=== PATIENT | female | born 1975 | race Caucasian/White ===

== ENCOUNTER 2017-01-29 00:16 | Emergency (ER) | payer BC ==
[2017-01-29 00:37] VITALS: RESP 18
--- NOTE | 2017-01-29 01:08 | ED ---
Chest Pain HPI - General Chief Complaint: Chest Pain Stated Complaint: chest pain Time Seen by Provider: 01/29/17 00:33 Source: patient Mode of arrival: ambulatory Limitations: no limitations - History of Present Illness Initial Comments: This patient is a 41-year-old woman who presents to be evaluated for epigastric pain that radiates to the right scapular area. She states that it started hour or 2 ago while she was lying in bed. She had gone to bed 20 minutes prior to the onset. The patient describes it as sharp and also aching pain at at home was severe but here it is now moderate. The pain is constant. She has not noted any worsening factors. The pain did get to see better after she had vomited. She states that she did have a similar episode to this last week though not as severe. Patient denies any symptoms accompanying this pain other than the nausea and vomiting which is now better. MD Complaint: chest pain Onset/Timin -: hour(s) Onset: during rest Pain Location: substernal Pain Radiation: back Severity: moderate Quality: aching, sharp Consistency: constant Improves With: other (Vomiting) Worsens With: nothing Anginal Symptoms: nausea, vomiting Treatments Prior to Arrival: none - Related Data Previous Rx's Medication Instructions Recorded HYDROcodone/APAP 5-325MG [[place] 1 - 2 tab PO Q4H PRN #15 tab 02/21/16 5-325] Ibuprofen [Motrin] 600 mg PO Q6HR PRN #30 tab 02/21/16 Famotidine [Pepcid] 20 mg PO DAILY #14 tablet 01/29/17 Allergies Allergy/AdvReac Type Severity Reaction Status Date / Time No Known Allergies Allergy Verified 01/29/17 00:23 Review of Systems ROS Statement: Those systems with pertinent positive or pertinent negative responses have been documented in the HPI. ROS Other: All systems not noted in ROS Statement are negative. Constitutional: Denies: fever, chills, weakness Respiratory: Denies: cough, dyspnea, wheezes Cardiovascular: Denies: chest pain, palpitations, edema, syncope Gastrointestinal: Reports: as per HPI, abdominal pain, nausea, vomiting. Denies : diarrhea, constipation, hematemesis, melena, hematochezia Genitourinary: Denies: dysuria, hematuria Musculoskeletal: Reports: as per HPI, back pain Skin: Denies: rash, lesions Neurological: Denies: headache, weakness, numbness EKG Findings - EKG Results: EKG: interpreted by STAR KEMP, sinus rhythm (Rate 77 bpm), normal axis, normal QRS, normal ST/T, no acute changes - TN, Pacemaker, Normal: Normal tracing: normal tracing Past Medical History Additional Past Medical History / Comment(s): kidney stones History of Any Multi-Drug Resistant Organisms: None Reported Past Surgical History: No Surgical Hx Reported Past Psychological History: No Psychological Hx Reported Smoking Status: Never smoker Past Alcohol Use History: None Reported Past Drug Use History: None Reported General Exam Limitations: no limitations General appearance: alert, in no apparent distress Head exam: Present: atraumatic, normocephalic, normal inspection Eye exam: Present: normal appearance. Absent: scleral icterus, conjunctival injection ENT exam: Present: mucous membranes dry Neck exam: Present: normal inspection Respiratory exam: Present: normal lung sounds bilaterally. Absent: respiratory distress, wheezes, rales, rhonchi, stridor Cardiovascular Exam: Present: regular rate, normal rhythm, normal heart sounds. Absent: systolic murmur, diastolic murmur, rubs, gallop GI/Abdominal exam: Present: soft, tenderness (There is mild epigastric and right upper quadrant tenderness without rebound or guarding). Absent: distended , guarding, rebound, rigid, organomegaly, mass, bruit, pulsatile mass, hernia Extremities exam: Present: normal inspection, normal capillary refill. Absent: pedal edema, calf tenderness Back exam: Present: normal inspection. Absent: CVA tenderness (R), CVA tenderness (L) Neurological exam: Present: alert Skin exam: Present: warm, dry, intact, normal color. 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
--- NOTE | 2017-01-29 01:10 | XR ---
EXAM: XR Chest, 1 View. CLINICAL HISTORY: Reason: abdominal pain TECHNIQUE: Frontal view of the chest. COMPARISON: No relevant prior studies available. FINDINGS: Lungs: Unremarkable. No consolidation. Pleural space: Unremarkable. No pneumothorax. Heart: Unremarkable. No cardiomegaly. Mediastinum: Unremarkable. Bones/joints: Unremarkable. Other: Images labeled as portable AP upright view. No free air noted under the diaphragms. IMPRESSION: No evidence of acute cardiopulmonary disease.
[2017-01-29 01:21] LABS: Basophils % (A) 1 %; CH 29.8; CHCM 34.3; Eosinophils # (A) 0.1 k/uL (0-0.7); Eosinophils % (A) 2 %; HCT 39.3 % (34.0-46.0); HDW 2.67; HGB 13.1 gm/dL (11.4-16.0); Luc # (Auto) 0.24; Luc % (Auto) 4; Lymphocytes # (A) 2.2 k/uL (1.0-4.8); Lymphocytes % (A) 41 %; MCH 29.2 pg (25.0-35.0); MCHC 33.4 g/dL (31.0-37.0); MCV 87.4 fL (80.0-100.0); Mean Platelet Volume 6.8; Monocytes # (A) 0.4 k/uL (0-1.0); Monocytes % (A) 6 %; Neutrophils # (A) 2.5 k/uL (1.3-7.7); Neutrophils % (A) 46 %; RDW 13.5 % (11.5-15.5); WBC 5.4 k/uL (3.8-10.6); WBC (Perox) 5.63
[2017-01-29 01:28] LABS: ALT 66 U/L (9-52); AST 106 U/L (14-36); Alkaline Phosphatase 60 U/L (38-126); Amylase 60 U/L (30-110); Anion Gap 12 mmol/L; Blood Urea Nitrogen 16 mg/dL (7-17); Calcium 9.6 mg/dL (8.4-10.2); Carbon Dioxide 22 mmol/L (22-30); Chloride 110 mmol/L (98-107); Glucose 86 mg/dL (74-99); Non-African American GFR(MDRD) >60 (>60 ml/min/1.73 sqM); Potassium 4.3 mmol/L (3.5-5.1); Sodium 144 mmol/L (137-145); Total Bilirubin 0.6 mg/dL (0.2-1.3); Total Protein 7.2 g/dL (6.3-8.2)
[2017-01-29 02:38] LABS: Appearance,Urine Clear (Clear); Bacteria,Urine Rare /hpf; Bilirubin,Urine Negative (Negative); Glucose,Urine (UA) Negative (Negative); Ketones,Urine Negative (Negative); Leukocyte Esterase,Urine Moderate (Negative); Mucus,Urine Many /hpf; Nitrite,Urine Negative (Negative); Particle Count 6406; Protein,Urine Trace (Negative); RBC,Urine 2 /hpf (0-5); Specific Gravity,Urine 1.016 (1.001-1.035); Squamous Epithelial Cell,Urine 1 /hpf (0-4); UA Billing (MACRO vs. MICRO) MICRO; Urobilinogen,Urine <2.0 mg/dL (<2.0); WBC,Urine 22 /hpf (0-5)
[2017-01-29 02:53] VITALS: BP 116/71; PULSE 71; TEMP 97.8
== END 2017-01-29 02:58 | disposition home or self-care (01) ==
LOC: EC 00:16
DX: K80.50 Calculus of bile duct without cholangitis or cholecystitis without obstruction (principal); R07.2 Precordial pain; Z87.442 Personal history of urinary calculi
CPT/HCPCS: 36415; 71010; 80053; 81001; 81025; 82150; 83690; 84484; 85025; 93005; 99285

== ENCOUNTER 2017-02-02 17:32 | Inpatient (IN) | payer BC ==
[2017-02-02] MEDS ORDERED: SODIUM CHLORIDE 0.9% 1,000 ML IV STA ×2 (18:18)
[2017-02-02] MEDS ORDERED: HYDROmorphone 1 MG/ML 1 ML SYRINGE IVP STA (18:18)
--- NOTE | 2017-02-02 18:32 | ED ---
General Adult HPI - General Chief complaint: Abdominal Pain Stated complaint: abd pain Time Seen by Provider: 02/02/17 17:57 Source: patient, family, RN notes reviewed, old records reviewed Mode of arrival: ambulatory Limitations: no limitations - History of Present Illness Initial comments: Chief complaint and history of present illness, this is a 41-year-old female who had an ultrasound done today and it shows cholelithiasis and possible acute cholecystitis. The patient was sent here for admission and further evaluation by general surgery. - Related Data Home Medications Medication Instructions Recorded Confirmed Medroxyprogesterone Acetate 150 mg IM Q84D 02/02/17 02/02/17 [Depo-Provera] Multivitamins, Thera [Multivitamin 1 tab PO DAILY 02/02/17 02/02/17 (formulary)] Allergies Allergy/AdvReac Type Severity Reaction Status Date / Time No Known Allergies Allergy Verified 02/02/17 18:13 Review of Systems ROS Statement: Those systems with pertinent positive or pertinent negative responses have been documented in the HPI. Review of systems. No complaint of headache or visual acuity changes, no chest pain or shortness of breath. Patient reports she has her pain the right upper quadrant goes toward the right shoulder area. Ultrasound done at [facility] today showed evidence of cholelithiasis and probable acute cholecystitis. Patient's reporting that she's had on-again off-again discomfort for several weeks. Past medical problems significant for kidney stones, denies any previous surgeries, nonsmoker nonalcohol user. Family history respiratory. ROS Other: All systems not noted in ROS Statement are negative. Past Medical History Additional Past Medical History / Comment(s): kidney stones History of Any Multi-Drug Resistant Organisms: None Reported Past Surgical History: No Surgical Hx Reported Past Psychological History: No Psychological Hx Reported Smoking Status: Never smoker Past Alcohol Use History: None Reported Past Drug Use History: None Reported General Exam - General Exam Comments Initial Comments: General: The patient is awake and alert, in no distress, and does not appear acutely ill. Blunting of right upper quadrant discomfort recurrent. Gallbladder study done today shows evidence of cholelithiasis and cholecystitis. Vital signs show temperature 97.5 pulse 79 respiratory rate 20 pulse ox R percent room air blood pressure 120/68 Eye: Pupils are equal, round and reactive to light, extra-ocular movements are intact ; there is normal conjunctiva bilaterally. No signs of icterus. Ears, nose, mouth and throat: There are moist mucous membranes and no oral lesions. Neck: The neck is supple, there is no tenderness . Cardiovascular: There is a regular rate and rhythm. No murmur, rub or gallop is appreciated. Respiratory: Lungs are clear to auscultation, respirations are non-labored, breath sounds are equal. No wheezes, stridor, rales, or rhonchi. Gastrointestinal: Tenderness with deep palpation to the right upper quadrant. Positive Silver sign. Back: There is no tenderness to palpation in the midline. There is no obvious deformity. No rashes noted. Vaginal pain that radiates to the right shoulder area Musculoskeletal: Normal ROM, no tenderness, There is no pedal edema. There is no calf tenderness or swelling. Sensation intact. Pulses equal bilaterally 2+. Neurological: No gross neuro deficits appreciated. Skin: Skin is warm and dry and no rashes or lesions are noted. Limitations: no limitations Course Vital Signs 02/02/17 02/02/17 17:43 18:38 Temperature 98.1 F 98.5 F Pulse Rate 73 67 Respiratory 20 18 Rate Blood Pressure 124/73 113/76 O2 Sat by Pulse 98 100 Oximetry Medical Decision Making - Medical Decision Making Medical decision making; the patient had an ultrasound done at [facility]. It was reviewed by one of our radiologist. His impression is the liver is unremarkable without biliary dilatation. There are small stones within the gallbladder. The gallbladder wall measures 3 mm. The distal common hepatic duct measures 1.6 mm there is sonographic Silver's sign. The right kidney is normal. The intrahepatic IVC is normal. His final impression is; cholelithiasis and possible acute cholecystitis. As read by Dr. Shaista Allen, on-call general surgeon was notified of the case. Patient will be kept nothing by mouth. Labs are pending. If it is significantly elevated bilirubin and GI consultation will be requested. At this time she requested Zosyn be started on admission. Labs show white count of 4.5 hemoglobin 13 hematocrit of 40, potassium 4.3 with a BUN of 15 creatinine 0.69 the GFR greater than 60. Glucose 79. Amylase lipase normal limits. Total bilirubin 0.8. - Lab Data Result diagrams: 02/02/17 18:36 02/02/17 18:36 Lab Results 02/02/17 02/02/17 Range/Units 18:36 18:36 WBC 4.5 (3.8-10.6) k/uL RBC 4.64 (3.80-5.40) m/uL Hgb 13.6 (11.4-16.0) gm/dL Hct 40.7 (34.0-46.0) % MCV 87.6 (80.0-100.0) fL MCH 29.2 (25.0-35.0) pg MCHC 33.4 (31.0-37.0) g/dL RDW 13.1 (11.5-15.5) % Plt Count 326 (150-450) k/uL Neutrophils % 52 % Lymphocytes % 38 % Monocytes % 5 % Eosinophils % 2 % Basophils % 1 % Neutrophils # 2.3 (1.3-7.7) k/uL Lymphocytes # 1.7 (1.0-4.8) k/uL Monocytes # 0.2 (0-1.0) k/uL Eosinophils # 0.1 (0-0.7) k/uL Basophils # 0.0 (0-0.2) k/uL Sodium 141 (137-145) mmol/L Potassium 4.3 (3.5-5.1) mmol/L Chloride 107 (98-107) mmol/L Carbon Dioxide 21 L (22-30) mmol/L Anion Gap 13 mmol/L BUN 15 (7-17) mg/dL Creatinine 0.69 (0.52-1.04) mg/dL Est GFR (MDRD) Af Amer >60 (>60 ml/min/1.73 sqM) Est GFR (MDRD) Non-Af >60 (>60 ml/min/1.73 sqM) Glucose 79 (74-99) mg/dL Calcium 9.6 (8.4-10.2) mg/dL Total Bilirubin 0.8 (0.2-1.3) mg/dL AST 31 (14-36) U/L ALT 38 (9-52) U/L Alkaline Phosphatase 67 (38-126) U/L Total Protein 7.5 (6.3-8.2) g/dL Albumin 4.3 (3.5-5.0) g/dL Amylase 44 (30-110) U/L Lipase 76 (23-300) U/L Disposition Clinical Impression: Acute cholecystitis due to biliary calculus Disposition: ADMITTED IP TO THIS HOSP Condition: Fair
[2017-02-02 18:49] LABS: Basophils % (A) 1 %; CH 29.6; Eosinophils # (A) 0.1 k/uL (0-0.7); Eosinophils % (A) 2 %; HCT 40.7 % (34.0-46.0); HDW 2.64; HGB 13.6 gm/dL (11.4-16.0); Luc # (Auto) 0.13; Luc % (Auto) 3; Lymphocytes # (A) 1.7 k/uL (1.0-4.8); Lymphocytes % (A) 38 %; MCH 29.2 pg (25.0-35.0); MCHC 33.4 g/dL (31.0-37.0); MCV 87.6 fL (80.0-100.0); Mean Platelet Volume 6.6; Monocytes # (A) 0.2 k/uL (0-1.0); Monocytes % (A) 5 %; Neutrophils # (A) 2.3 k/uL (1.3-7.7); Neutrophils % (A) 52 %; RBC 4.64 m/uL (3.80-5.40); RDW 13.1 % (11.5-15.5); WBC 4.5 k/uL (3.8-10.6); WBC (Perox) 4.45
[2017-02-02 18:58] LABS: ALT 38 U/L (9-52); AST 31 U/L (14-36); Alkaline Phosphatase 67 U/L (38-126); Amylase 44 U/L (30-110); Anion Gap 13 mmol/L; Blood Urea Nitrogen 15 mg/dL (7-17); Calcium 9.6 mg/dL (8.4-10.2); Carbon Dioxide 21 mmol/L (22-30); Chloride 107 mmol/L (98-107); Glucose 79 mg/dL (74-99); Non-African American GFR(MDRD) >60 (>60 ml/min/1.73 sqM); Potassium 4.3 mmol/L (3.5-5.1); Sodium 141 mmol/L (137-145); Total Bilirubin 0.8 mg/dL (0.2-1.3); Total Protein 7.5 g/dL (6.3-8.2)
[2017-02-02] MEDS ORDERED: PIPERACILLIN-TAZOBACTAM 3.375 GM in DEXTROSE/WATER 1 50ML.BAG IVPB STA (19:26)
[2017-02-02] MEDS ORDERED: NALOXONE 0.4 MG/ML 1 ML VIAL IV PRN (19:27)
[2017-02-02] MEDS ORDERED: HYDROmorphone 1 MG/ML 1 ML SYRINGE IV PRN (19:27)
[2017-02-02] MEDS: SODIUM CHLORIDE 0.9% 1,000 ML IV SCH (19:47)
[2017-02-03] MEDS: ONDANSETRON 4 MG/2 ML VIAL IVP PRN ×2 (05:02→18:28)
[2017-02-03] MEDS: SODIUM CHLORIDE 0.9% 1,000 ML IV SCH ×3 (05:14→17:35)
[2017-02-03 05:26] LABS: Appearance,Urine Clear (Clear); Bilirubin,Urine Negative (Negative); Glucose,Urine (UA) Negative (Negative); Ketones,Urine 1+ (Negative); Leukocyte Esterase,Urine Large (Negative); Mucus,Urine Few /hpf; Nitrite,Urine Negative (Negative); Particle Count 6485; Protein,Urine Trace (Negative); RBC,Urine 3 /hpf (0-5); Specific Gravity,Urine 1.019 (1.001-1.035); Squamous Epithelial Cell,Urine 1 /hpf (0-4); UA Billing (MACRO vs. MICRO) MICRO; Urobilinogen,Urine <2.0 mg/dL (<2.0); WBC,Urine 36 /hpf (0-5)
[2017-02-03] MEDS: PIPERACILLIN-TAZOBACTAM 3.375 GM in DEXTROSE/WATER 1 50ML.BAG IVPB SCH ×3 (08:46→23:14)
[2017-02-03] MEDS ORDERED: HEPARIN SODIUM,PORCINE 5,000 UNIT/ML 1 ML VIAL SQ ONE (10:01)
--- NOTE | 2017-02-03 10:37 | P.GSHP ---
History of Present Illness H&P Date: 02/03/17 Chief Complaint: Right upper quadrant abdominal pain 41-year-old female presented on the day of admission to the emergency room to be evaluated for an abnormal ultrasound of the gallbladder that did show possible acute cholecystitis with cholelithiasis for persistent right abdominal pain onset for the past week. Patient has no other significant past medical history. Patient stated her symptoms and her first attack occurred January 24. Patient points to the right upper quadrant was to the reference point patient stated that she had pain there with a sensation of nausea did not feel like eating symptoms became more symptomatic did go to the emergency room last Tuesday to be evaluated. Patient to follow-up with her primary doctor who did order an ultrasound of gallbladder which the patient stated that she had on February 02 was told was abnormal and was advised to come into the emergency room subsequent has been admitted to the services of the attending. Patient is scheduled today for a lap cholecystectomy. Patient continues to report having persistent right upper quadrant abdominal discomfort patient states the ultrasound of the gallbladder was done at [facility] on the labs were reviewed white count 4.5 total bilirubin 0.8 potassium 4.3 hematocrit 40 with a hemoglobin of 13 There is no significant past surgical history Patient denies any chest pain dizziness lightheadedness shortness of breath any recent cough fever or chills - Review of Systems Comment: Essentially unremarkable except as mentioned in the present illness Past Medical History Additional Past Medical History / Comment(s): kidney stones History of Any Multi-Drug Resistant Organisms: None Reported Past Surgical History: No Surgical Hx Reported Past Anesthesia/Blood Transfusion Reactions: No Reported Reaction Past Psychological History: No Psychological Hx Reported Smoking Status: Never smoker Past Alcohol Use History: None Reported Past Drug Use History: None Reported - Past Family History Mother Family Medical History: Hypertension Father Family Medical History: Deep Vein Thrombosis (DVT), Hyperlipidemia, Hypertension Additional Family Medical History / Comment(s): DVT at age 73 Medications and Allergies Home Medications Medication Instructions Recorded Confirmed Type Medroxyprogesterone Acetate 150 mg IM Q84D 02/02/17 02/02/17 History [Depo-Provera] Multivitamins, Thera [Multivitamin 1 tab PO DAILY 02/02/17 02/02/17 History (formulary)] Allergies Allergy/AdvReac Type Severity Reaction Status Date / Time No Known Allergies Allergy Verified 02/02/17 18:13 Surgical - Exam Vital Signs Temp Pulse Resp BP Pulse Ox 98.1 F 73 20 124/73 98 02/02/17 17:43 02/02/17 17:43 02/02/17 17:43 02/02/17 17:43 02/02/17 17:43 GENERAL APPEARANCE: 41-year-old female patient is alert, oriented 3, in no acute distress. Pleasant cooperative VITAL SIGNS: Reviewed HEENT: Head is normocephalic and atraumatic. Pupils are equal and reactive. The nares are patent. Oropharynx is clear without lesions. NECK: Supple without lymphadenopathy. Traches midline. HEART: S1, S2. Regular rate and rhythm. No murmur noted denying chest pain LUNGS: No crackles or wheezes are heard. On room air essentially clear no conversational dyspnea noted no cough noted ABDOMEN: Soft, slight tenderness right quadrant nondistended with good bowel sounds. No peritoneal signs. No palpable organomegaly or masses. Reports a sensation of nausea no active emesis states no stooling no difficulty in urinating EXTREMITIES: Normal skin color and turgor. No cyanosis, rash, ulceration, clubbing or edema. Radial pedal pulses are 2/4 bilaterally. NEUROLOGICAL: No focal deficits. Strength and sensation are grossly intact. Results - Labs 02/02/17 18:36 02/02/17 18:36 Abnormal Lab Results - Last 24 Hours (Table) 02/03/17 Range/Units 05:00 Urine Protein Trace H (Negative) Urine Ketones 1+ H (Negative) Ur Leukocyte Esterase Large H (Negative) Urine WBC 36 H (0-5) /hpf Urine Mucus Few H (None) /hpf Assessment and Plan Plan: Impression Present on admission persistent right upper quadrant abdominal pain with an ultrasound of the gallbladder showing cholelithiasis with acute cholecystitis not ruled out Persistent intermittent episodes right upper quadrant pain likely due to cholelithiasis with acute cholecystitis not ruled out Plan Schedule today for a lap cholecystectomy Continue IV hydration Pain control DVT and GI prophylaxis Further recommendations pending IV Zosyn as ordered The above dictated assessment and findings were discussed with dr mendieta . Impression and the plan of care have been dictated as directed. Chhaya Contreras nurse practitioner acting as a scribe for dr mendieta
[2017-02-03] MEDS ORDERED: IV FLUID CONTINUATION 1,000 ML IV ONE (13:32)
[2017-02-03] MEDS ORDERED: DEXAMETHASONE SOD PHOSPHATE 10 MG/ML 1 ML VIAL IV ONE (13:34)
[2017-02-03] MEDS ORDERED: ONDANSETRON 4 MG/2 ML VIAL IVP ONE (13:36)
[2017-02-03] MEDS ORDERED: MIDAZOLAM 2 MG/2 ML VIAL IV ONE (13:40)
[2017-02-03] MEDS ORDERED: ROCURONIUM BROMIDE 10 MG/ML 10 ML VIAL IV ONE (14:44)
[2017-02-03] MEDS ORDERED: MIDAZOLAM 2 MG/2 ML VIAL ONE (14:44)
[2017-02-03] MEDS ORDERED: HYDROmorphone (PF) 1 MG/ML ONE (14:44)
[2017-02-03] MEDS ORDERED: LIDOCAINE 1% INJ 10MG/ML (20 ML MDV) ONE (14:44)
[2017-02-03] MEDS ORDERED: PROPOFOL 10 MG/ML 20 ML VIAL IV ONE (14:44)
[2017-02-03] MEDS ORDERED: fentaNYL (PF) 50 MCG/ML 2 ML AMP ONE (14:44)
[2017-02-03] MEDS ORDERED: SUCCINYLCHOLINE CHLORIDE 100 MG/5 ML SYR IV ONE (14:44)
[2017-02-03] MEDS ORDERED: BUPIVACAIN-EPI 0.25%-1:200,000 30 ML VIAL SQ ONE ×2 (15:15)
[2017-02-04] MEDS: ONDANSETRON 4 MG/2 ML VIAL IVP PRN (02:45)
[2017-02-04] MEDS: SODIUM CHLORIDE 0.9% 1,000 ML IV SCH ×2 (04:34→10:28)
[2017-02-04 07:41] VITALS: BP 125/64; PULSE 97; RESP 20; TEMP 98
--- NOTE | 2017-02-04 08:21 | P.OP ---
Date of Procedure: 02/03/17 Preoperative Diagnosis: Acute calculus cholecystitis Postoperative Diagnosis: Same Procedure(s) Performed: Laparoscopic Cholecystectomy Implants: NA Anesthesia: SYDNEEA, local Surgeon: Ilene Allen Estimated Blood Loss (ml): 5 Pathology: other Condition: stable Disposition: PACU Indications for Procedure: 41 years old female presented with acute right upper quadrant pain. Ultrasound showed gallstones. Informed consent obtained and patient elected to undergo laparoscopic cholecystectomy possible open. The risks, benefits and potential complications were explained patient elected to undergo the procedure Operative Findings: Acute cholecystitis Description of Procedure: The patient was brought to the operating room and placed in supine position with both arms out. General anesthesia with endotracheal intubation was performed as per anesthesia team. Chlorhexidine was used to prep the abdomen followed by application of sterile drapes. A timeout was performed to verify correct patient and correct procedure. Patient was confirmed to receive perioperative IV antibiotics , heparin 5000 units subcutaneous injection and bilateral SCDs were placed. A 5 mm skin incision was made below the left costal margin at the anterior axillary line. A Veress needle was inserted and pneumoperitoneum was established to a pressure of 15 mmHg. A 5 mm Optiview trocar was loaded on a 5 mm 30 laparoscope and the peritoneal cavity was entered under direct vision using the Optiview technique. Additional 5 mm trocar was placed in the supraumbilical location and two 5 mm trocars along the right subcostal margin. The left 5 mm trocar was upsized to 10mm. The patient was placed in reverse Trendelenburg with right side up. The fundus of the gallbladder was grasped with an atraumatic grasper and was retracted over the dome of the liver. The infundibulum was grasped with an atraumatic grasper and retracted towards the pelvis to expose the Calot's triangle. Lateral and medial peritoneal attachment of the gallbladder bladder was dissected. Circumferential dissection was carried out around the cystic artery and the cystic duct to obtain adequate length for clip application. All the surrounding fibrofatty tissue were removed. Critical view was obtained with cystic duct and cystic artery as the only two structures entering the gallbladder. Two clips were applied on the patient's side and one on the specimen side on the cystic duct first followed by the cystic artery. Endoshears were used to divide the cystic duct and the cystic artery. The gallbladder was taken off the liver bed using a L-hook. It was placed in an endocatch specimen bag and removed through the 10mm port. The gallbladder was passed off as a specimen. The abdominal cavity was inspected. The clips on the cystic duct and cystic artery stump were intact and no bleeding noted from the liver bed. All the trocar sites were examined and no evidence of bleeding. The 10mm port site was closed with two transfascial sutures of 0 Vicryl using a Wil Kirstin device. The pneumoperitoneum was evacuated and all the trocars were removed. Local anesthetic was infiltrated along the trocar sites and incisions were closed using 4-0 Monocryl followed by application of Dermabond skin glue. The sponge, instrument and needle count were correct x2. Patient was extubated and taken to post anesthesia care unit in stable condition.
[2017-02-04] MEDS ORDERED: ACETAMINOPHEN IV (For NPO) 1,000 MG in EMPTY BAG 1 BAG IVPB ONE (09:00)
[2017-02-04] MEDS: PIPERACILLIN-TAZOBACTAM 3.375 GM in DEXTROSE/WATER 1 50ML.BAG IVPB SCH (10:28)
--- NOTE | 2017-02-04 14:04 | P.DS ---
Providers Date of admission: 02/02/17 19:27 Expected date of discharge: 02/04/17 Attending physician: Ilene Mendieta Primary care physician: Rosie Conley [facility] Course: 1-year-old female presented on the day of admission to the emergency room to be evaluated for an abnormal ultrasound of the gallbladder that did show possible acute cholecystitis with cholelithiasis for persistent right abdominal pain onset for the past week. Patient has no other significant past medical history. Patient stated her symptoms and her first attack occurred January 24. Patient points to the right upper quadrant was to the reference point patient stated that she had pain there with a sensation of nausea did not feel like eating symptoms became more symptomatic did go to the emergency room last Tuesday to be evaluated. Patient to follow-up with her primary doctor who did order an ultrasound of gallbladder which the patient stated that she had on February 02 was told was abnormal and was advised to come into the emergency room subsequent has been admitted to the services of the attending. Patient is scheduled today for a lap cholecystectomy. Patient continues to report having persistent right upper quadrant abdominal discomfort patient states the ultrasound of the gallbladder was done at [facility] on the labs were reviewed white count 4.5 total bilirubin 0.8 potassium 4.3 hematocrit 40 with a hemoglobin of 13 There is no significant past surgical history Patient denies any chest pain dizziness lightheadedness shortness of breath any recent cough fever or chillspatient did undergo the procedure on February 03 Laparoscopic Cholecystectomy Anesthesia: ruslan WELCH patient was felt to be hemodynamically stable and appropriate proceed with a discharge to home on February 04 Impression discharge diagnosis Status post 02/03/2017 laparoscopic cholecystectomy Present on admission persistent right upper quadrant abdominal pain with an ultrasound of the gallbladder showing cholelithiasis with acute cholecystitis not ruled out Persistent intermittent episodes right upper quadrant pain likely due to cholelithiasis with acute cholecystitis not ruled out The above dictated assessment and findings were discussed with dr mendieta . Impression and the plan of care have been dictated as directed. Chhaya Contreras nurse practitioner acting as a scribe for dr mendieta Patient Condition at Discharge: Fair Plan - Discharge Summary New Discharge Prescriptions: Docusate [Colace] 100 mg PO BID #30 capsule Hydrocodone/Acetaminophen [[place] 5-325] 1 each PO Q6HR PRN #30 tab PRN Reason: Pain Discharge Medication List Medroxyprogesterone Acetate [Depo-Provera] 150 mg IM Q84D 02/02/17 [History] Multivitamins, Thera [Multivitamin (formulary)] 1 tab PO DAILY 02/02/17 [History ] Docusate [Colace] 100 mg PO BID #30 capsule 02/03/17 [Rx] Hydrocodone/Acetaminophen [[place] 5-325] 1 each PO Q6HR PRN #30 tab 02/03/17 [Rx] Follow up Appointment(s)/Referral(s): Ilene Mendieta MD [STAFF PHYSICIAN] - 02/08/17 10:40 am Rosie Conley MD [Primary Care Provider] - 02/07/17 (Office will call you with appointment time. ) Patient Instructions/Handouts: *Surgery [facility] - Laparoscopic Cholecystectomy Discharge Instructions, *Surgery [facility] - (Anesthesia) Discharge Instructions Outpatient Surgery Activity/Diet/Wound Care/Special Instructions: Ok to shower. No soaking bath. No heavy lifting>10 lbs for 6 weeks post surgery. Discharge Disposition: HOME SELF-CARE
== END 2017-02-04 14:38 | disposition home or self-care (01) | DRG 419 ==
LOC: EC 17:32 → 4MS4W 19:27
PROVIDERS: ADMIT Surgery; ATTEND Surgery
PROC: 0FT44ZZ Resection of Gallbladder, Percutaneous Endoscopic Approach (ICD-10-PCS; principal; 2017-02-03 14:45)
DX: K80.00 Calculus of gallbladder with acute cholecystitis without obstruction (principal); Z87.442 Personal history of urinary calculi; Z82.49 Family history of ischemic heart disease and other diseases of the circulatory system; Z79.3 Long term (current) use of hormonal contraceptives
CPT/HCPCS: 36415; 80053; 81001; 81025; 82150; 83690; 85025; 87086; 88304; 96361; 96374; 99285

== ENCOUNTER → 2017-06-30 | Outpatient (CLI) | payer BC ==
--- NOTE | 2017-07-01 10:25 | MM ---
Reason for exam: screening (asymptomatic). Last mammogram was performed 1 year ago. History: Family history of breast cancer in aunt at age 50. Taking hormonal contraceptives for 16 years beginning at age 18. Physical Findings: A clinical breast exam by your physician is recommended on an annual basis and results should be correlated with mammographic findings. MG Screening Mammo w CAD Bilateral CC and MLO view(s) were taken. Prior study comparison: June 29, 2016, bilateral MG screening mammo w CAD. June 25, 2015, bilateral MG screening mammo w CAD. The breast tissue is heterogeneously dense. This may lower the sensitivity of mammography. No suspicious abnormality. No significant changes when compared with prior studies. ASSESSMENT: Negative, BI-RAD 1 RECOMMENDATION: Routine screening mammogram of both breasts in 1 year.
== END | disposition home or self-care (01) ==
LOC: RADMAMWWP 15:59
PROVIDERS: ATTEND Obstetrics & Gynecology
DX: Z12.31 Encounter for screening mammogram for malignant neoplasm of breast (principal)

== ENCOUNTER 2018-07-09 13:17 | Emergency (ER) | payer BC ==
[2018-07-09] MEDS ORDERED: SODIUM CHLORIDE 0.9% 1,000 ML IV STA (13:33)
[2018-07-09] MEDS ORDERED: KETOROLAC 30 MG/ML 1 ML VIAL IVP STA (13:33)
[2018-07-09] MEDS ORDERED: SODIUM CHLORIDE 0.9% 500 ML IV STA (13:33)
[2018-07-09] MEDS ORDERED: ONDANSETRON 4 MG/2 ML VIAL IVP STA (13:33)
--- NOTE | 2018-07-09 13:48 | ED ---
Abdominal Pain HPI - General Chief Complaint: Abdominal Pain Stated Complaint: kidney stone Time Seen by Provider: 07/09/18 13:32 Source: patient, RN notes reviewed Mode of arrival: ambulatory Limitations: no limitations - History of Present Illness Initial Comments: This is a pleasant 43-year-old female presents emergency Department chief complaint left flank pain. Patient states the pain initially started 1 week ago when the last 12 hours has intensified. She does have a history kidney stones and states it feels exactly same as her normal kidney stone. She states that she's been trying to increase her fluids but states that she is now nauseated. She did notice some hematuria when the pain first started and now has not noticed it. She has had a prior cholecystectomy. Denies any chance no other abdominal surgeries. Patient denies chest pain, shortness breath, fever, chills. - Related Data Home Medications Medication Instructions Recorded Confirmed Medroxyprogesterone Acetate 150 mg IM Q84D 02/02/17 02/02/17 [Depo-Provera] Multivitamins, Thera [Multivitamin 1 tab PO DAILY 02/02/17 02/02/17 (formulary)] Previous Rx's Medication Instructions Recorded Docusate [Colace] 100 mg PO BID #30 capsule 02/03/17 Hydrocodone/Acetaminophen [[place] 1 each PO Q6HR PRN #30 tab 02/03/17 5-325] Ciprofloxacin HCl [Cipro] 500 mg PO Q12HR #14 tablet 07/09/18 Ketorolac [Toradol] 10 mg PO Q8HR #15 tab 07/09/18 Ondansetron Odt [Zofran Odt] 4 mg PO Q8HR PRN #10 tab 07/09/18 Tamsulosin [Flomax] 0.4 mg PO DAILY #7 cap 07/09/18 Allergies Allergy/AdvReac Type Severity Reaction Status Date / Time No Known Allergies Allergy Verified 02/02/17 18:13 Review of Systems ROS Statement: Those systems with pertinent positive or pertinent negative responses have been documented in the HPI. ROS Other: All systems not noted in ROS Statement are negative. Past Medical History Additional Past Medical History / Comment(s): kidney stones History of Any Multi-Drug Resistant Organisms: None Reported Past Surgical History: Cholecystectomy Past Anesthesia/Blood Transfusion Reactions: No Reported Reaction Past Psychological History: No Psychological Hx Reported Smoking Status: Never smoker Past Alcohol Use History: None Reported Past Drug Use History: None Reported - Past Family History Mother Family Medical History: Hypertension Father Family Medical History: Deep Vein Thrombosis (DVT), Hyperlipidemia, Hypertension Additional Family Medical History / Comment(s): DVT at age 73 General Exam Limitations: no limitations General appearance: alert, in no apparent distress Head exam: Present: atraumatic, normocephalic, normal inspection Respiratory exam: Present: normal lung sounds bilaterally. Absent: respiratory distress, wheezes, rales, rhonchi, stridor Cardiovascular Exam: Present: regular rate, normal rhythm, normal heart sounds. Absent: systolic murmur, diastolic murmur, rubs, gallop, clicks GI/Abdominal exam: Present: soft, normal bowel sounds. Absent: distended, tenderness, guarding, rebound, rigid Back exam: Present: CVA tenderness (L) (Mild). Absent: CVA tenderness (R) Course Vital Signs 07/09/18 13:19 Temperature 97.7 F Pulse Rate 75 Respiratory 16 Rate Blood Pressure 119/67 O2 Sat by Pulse 98 Oximetry Medical Decision Making - Medical Decision Making 43-year-old female presented emergency from for left flank pain. She does have 4 mm UVJ stone. Patient does have multiple stones bilaterally. Patient does have 20 white cells in her urine that she is afebrile. She'll be given antibiotics and discharged with follow-up with urology and return parameters were discussed. - Lab Data Result diagrams: 07/09/18 13:36 07/09/18 13:36 Lab Results 07/09/18 07/09/18 07/09/18 Range/Units 13:36 13:36 13:36 WBC 5.4 (3.8-10.6) k/uL RBC 4.55 (3.80-5.40) m/uL Hgb 13.3 (11.4-16.0) gm/dL Hct 39.9 (34.0-46.0) % MCV 87.7 (80.0-100.0) fL MCH 29.2 (25.0-35.0) pg MCHC 33.3 (31.0-37.0) g/dL RDW 12.6 (11.5-15.5) % Plt Count 362 (150-450) k/uL Neutrophils % 66 % Lymphocytes % 26 % Monocytes % 4 % Eosinophils % 2 % Basophils % 0 % Neutrophils # 3.6 (1.3-7.7) k/uL Lymphocytes # 1.4 (1.0-4.8) k/uL Monocytes # 0.2 (0-1.0) k/uL Eosinophils # 0.1 (0-0.7) k/uL Basophils # 0.0 (0-0.2) k/uL Sodium 141 (137-145) mmol/L Potassium 4.2 (3.5-5.1) mmol/L Chloride 112 H (98-107) mmol/L Carbon Dioxide 19 L (22-30) mmol/L Anion Gap 10 mmol/L BUN 21 H (7-17) mg/dL Creatinine 0.94 (0.52-1.04) mg/dL Est GFR (CKD-EPI)AfAm 86 (>60 ml/min/1.73 sqM) Est GFR (CKD-EPI)NonAf 74 (>60 ml/min/1.73 sqM) Glucose 108 H (74-99) mg/dL Calcium 9.5 (8.4-10.2) mg/dL Total Bilirubin 0.7 (0.2-1.3) mg/dL AST 23 (14-36) U/L ALT 39 (9-52) U/L Alkaline Phosphatase 56 (38-126) U/L Total Protein 6.9 (6.3-8.2) g/dL Albumin 3.9 (3.5-5.0) g/dL Amylase 42 (30-110) U/L Lipase 53 (23-300) U/L Urine Color Urine Appearance (Clear) Urine pH (5.0-8.0) Ur Specific [place] (1.001-1.035) Urine Protein (Negative) Urine Glucose (UA) (Negative) Urine Ketones (Negative) Urine Blood (Negative) Urine Nitrite (Negative) Urine Bilirubin (Negative) Urine Urobilinogen (<2.0) mg/dL Ur Leukocyte Esterase (Negative) Urine RBC (0-5) /hpf Urine WBC (0-5) /hpf Ur Squamous Epith Cells (0-4) /hpf Hyaline Casts (0-2) /lpf Urine Mucus (None) /hpf Urine HCG, Qual Not Detected (Not Detectd) 09/02/18 Range/Units 13:36 WBC (3.8-10.6) k/uL RBC (3.80-5.40) m/uL Hgb (11.4-16.0) gm/dL Hct (34.0-46.0) % MCV (80.0-100.0) fL MCH (25.0-35.0) pg MCHC (31.0-37.0) g/dL RDW (11.5-15.5) % Plt Count (150-450) k/uL Neutrophils % % Lymphocytes % % Monocytes % % Eosinophils % % Basophils % % Neutrophils # (1.3-7.7) k/uL Lymphocytes # (1.0-4.8) k/uL Monocytes # (0-1.0) k/uL Eosinophils # (0-0.7) k/uL Basophils # (0-0.2) k/uL Sodium (137-145) mmol/L Potassium (3.5-5.1) mmol/L Chloride (98-107) mmol/L Carbon Dioxide (22-30) mmol/L Anion Gap mmol/L BUN (7-17) mg/dL Creatinine (0.52-1.04) mg/dL Est GFR (CKD-EPI)AfAm (>60 ml/min/1.73 sqM) Est GFR (CKD-EPI)NonAf (>60 ml/min/1.73 sqM) Glucose (74-99) mg/dL Calcium (8.4-10.2) mg/dL Total Bilirubin (0.2-1.3) mg/dL AST (14-36) U/L ALT (9-52) U/L Alkaline Phosphatase (38-126) U/L Total Protein (6.3-8.2) g/dL Albumin (3.5-5.0) g/dL Amylase (30-110) U/L Lipase (23-300) U/L Urine Color Yellow Urine Appearance Cloudy H (Clear) Urine pH 5.5 (5.0-8.0) Ur Specific [place] 1.018 (1.001-1.035) Urine Protein Trace H (Negative) Urine Glucose (UA) Negative (Negative) Urine Ketones Negative (Negative) Urine Blood Negative (Negative) Urine Nitrite Negative (Negative) Urine Bilirubin Negative (Negative) Urine Urobilinogen <2.0 (<2.0) mg/dL Ur Leukocyte Esterase Large H (Negative) Urine RBC 2 (0-5) /hpf Urine WBC 20 H (0-5) /hpf Ur Squamous Epith Cells 4 (0-4) /hpf Hyaline Casts 2 (0-2) /lpf Urine Mucus Few H (None) /hpf Urine HCG, Qual (Not Detectd) Disposition Clinical Impression: Ureteral calculi, UTI (urinary tract infection) Disposition: HOME SELF-CARE Condition: Stable Instructions: Kidney Stones (ED) Additional Instructions: Please return to the Emergency Department if symptoms worsen or any other concerns. Prescriptions: Ciprofloxacin HCl [Cipro] 500 mg PO Q12HR #14 tablet Ketorolac [Toradol] 10 mg PO Q8HR #15 tab Ondansetron Odt [Zofran Odt] 4 mg PO Q8HR PRN #10 tab PRN Reason: Nausea Tamsulosin [Flomax] 0.4 mg PO DAILY #7 cap Is patient prescribed a controlled substance at d/c from ED?: No Referrals: Rosie Conley MD [Primary Care Provider] - 1-2 days Kel Pinedo MD [STAFF PHYSICIAN] - 1-2 days Time of Disposition: 15:06
[2018-07-09 13:53] LABS: Basophils % (A) 0 %; Eosinophils # (A) 0.1 k/uL (0-0.7); Eosinophils % (A) 2 %; HCT 39.9 % (34.0-46.0); HGB 13.3 gm/dL (11.4-16.0); Lymphocytes # (A) 1.4 k/uL (1.0-4.8); Lymphocytes % (A) 26 %; MCH 29.2 pg (25.0-35.0); MCHC 33.3 g/dL (31.0-37.0); MCV 87.7 fL (80.0-100.0); Mean Platelet Volume 6.5; Monocytes # (A) 0.2 k/uL (0-1.0); Monocytes % (A) 4 %; Neutrophils # (A) 3.6 k/uL (1.3-7.7); Neutrophils % (A) 66 %; Platelet Count 362 k/uL (150-450); RBC 4.55 m/uL (3.80-5.40); RDW 12.6 % (11.5-15.5); WBC 5.4 k/uL (3.8-10.6)
[2018-07-09 14:02] LABS: Appearance,Urine Cloudy (Clear); Bilirubin,Urine Negative (Negative); Blood,Urine Negative (Negative); Color,Urine Yellow; Glucose,Urine (UA) Negative (Negative); Hyaline Casts,Urine 2 /lpf (0-2); Ketones,Urine Negative (Negative); Leukocyte Esterase,Urine Large (Negative); Mucus,Urine Few /hpf; Nitrite,Urine Negative (Negative); PH, Urine 5.5 (5.0-8.0); Protein,Urine Trace (Negative); RBC,Urine 2 /hpf (0-5); Specific Gravity,Urine 1.018 (1.001-1.035); Squamous Epithelial Cell,Urine 4 /hpf (0-4); Urobilinogen,Urine <2.0 mg/dL (<2.0); WBC,Urine 20 /hpf (0-5)
[2018-07-09 14:08] LABS: Albumin 3.9 g/dL (3.5-5.0); Calcium 9.5 mg/dL (8.4-10.2); Potassium 4.2 mmol/L (3.5-5.1); Total Bilirubin 0.7 mg/dL (0.2-1.3); Total Protein 6.9 g/dL (6.3-8.2)
--- NOTE | 2018-07-09 14:27 | XR ---
EXAMINATION TYPE: XR KUB DATE OF EXAM: 07/09/2018 COMPARISON: 01/26/2012 HISTORY: Abdominal pain TECHNIQUE: 2 views upright FINDINGS: There is a 5 mm calcification over the left kidney. There is no sign of intestinal obstruct ion or pneumoperitoneum. There are clips apparently from cholecystectomy. Fecal pattern is normal. Isabel ng bases are clear. IMPRESSION: Left renal calculus unchanged. Nonacute abdomen.
--- NOTE | 2018-07-09 14:53 | CT ---
EXAMINATION TYPE: CT abdomen pelvis wo con DATE OF EXAM: 07/09/2018 COMPARISON: 01/26/2012 HISTORY: Left side flank pain. CT DLP: 1060.2 mGycm Automated exposure control for dose reduction was used. TECHNIQUE: Helical acquisition of images was performed from the lung bases through the pelvis. FINDINGS: Lung bases are clear. There is no pleural effusion. Heart size is normal. Liver and spleen appear normal. There are clips from cholecystectomy. Pancreas appears normal. Bile d ucts are not dilated. There is no adrenal mass. There is 7 mm calculus in the upper pole left kidney. There is left-sided h ydronephrosis and hydroureter. There is 7 mm calculus in the distal left ureter. There are sigmoid di verticula. There is no evidence of diverticulitis. Appendix appears normal. There is no intestinal wa ll thickening. There is no ascites. There is no retroperitoneal adenopathy. Lumbar spine is intact. I see no bony destructive process. There is no sign of free air. There is no ascites. Bladder distends smoothly. Uterus is anteverted. IMPRESSION: SIGMOID DIVERTICULOSIS. SEVERAL LEFT RENAL CALCULI. 4 MM RIGHT RENAL CALCULUS. OBSTRUCTING CALCULUS I N THE DISTAL LEFT URETER WITH LEFT-SIDED HYDRONEPHROSIS AND HYDROURETER. NORMAL APPENDIX. OBSTRUCTION IS NEW COMPARED TO OLD EXAM.
[2018-07-09] MEDS ORDERED: cefTRIAXone IN SWFI 2,000 MG/20 ML SYRINGE IVP STA (15:04)
[2018-07-09] MEDS ORDERED: ACET/COD 300 MG/30 MG STARTER PACK 6 TAB BTL PO STA (15:07)
[2018-07-09 15:30] VITALS: BP 131/69; PULSE 76; RESP 18; TEMP 98.2
== END 2018-07-09 15:29 | disposition home or self-care (01) ==
LOC: EC 13:17
DX: N20.1 Calculus of ureter (principal); N39.0 Urinary tract infection, site not specified; Z90.49 Acquired absence of other specified parts of digestive tract; Z79.3 Long term (current) use of hormonal contraceptives
CPT/HCPCS: 36415; 80053; 82150; 83690; 85025; 81001; 81025; 87086; 74018; 74176; 99284; 96374; 96375 ×2; 96361; J2405; J0696; J1885

== ENCOUNTER 2018-07-18 13:20 | Day surgery (SDC) | payer BC ==
[2018-07-17 13:43] VITALS: BMI 33.5
--- NOTE | 2018-07-18 07:08 | P.GSHP ---
History of Present Illness H&P Date: 07/18/18 The patient is a 43 yo femal e with a history of stones that has a painful 5 mm distal left ureteral stone She comes for a ureteroscopy and laser lithotripsy as she has been unable to pass this and cant work. - Review of Systems ROS unobtainable: Reports: due to endotracheal tube, due to mental status Past Medical History Additional Past Medical History / Comment(s): kidney stones History of Any Multi-Drug Resistant Organisms: None Reported Past Surgical History: Cholecystectomy Past Anesthesia/Blood Transfusion Reactions: Postoperative Nausea & Vomiting ( PONV) Smoking Status: Never smoker - Past Family History Mother Family Medical History: Hypertension Father Family Medical History: Deep Vein Thrombosis (DVT) Additional Family Medical History / Comment(s): DVT at age 73 Sister(s) Family Medical History: Cancer Medications and Allergies Home Medications Medication Instructions Recorded Confirmed Type Multivitamins, Thera [Multivitamin 1 tab PO DAILY 02/02/17 07/17/18 History (formulary)] Ondansetron Odt [Zofran Odt] 4 mg PO Q8HR PRN #10 tab 07/09/18 07/17/18 Rx Ketorolac [Toradol] 10 mg PO Q8HR PRN 07/17/18 07/17/18 History medroxyPROGESTERone [Depo-Provera] 150 mg IM DIRECTED 07/17/18 07/17/18 History Allergies Allergy/AdvReac Type Severity Reaction Status Date / Time No Known Allergies Allergy Verified 07/17/18 13:35 Surgical - Exam - General well developed, well nourished, moderate distress - Eyes PERRL - ENT no hearing loss - Neck trachea midline - Respiratory normal expansion, normal respiratory effort - Cardiovascular Rhythm: regular - Abdomen Abdomen: soft, tender - Integumentary no rash - Neurologic normal coordination, disoriented - Musculoskeletal normal gait, normal posture - Psychiatric oriented to time, oriented to person, oriented to place, speech is normal, memory intact Results - Imaging CT scan - abdomen: report reviewed, image reviewed CT scan - pelvis: report reviewed, image reviewed Assessment and Plan Assessment: Impression: Painful left ureteral stone Plan: Left uretersocopy with laser lithotripsy and possible stent placement
[~2018-07-18 13:20] MED LIST: GENTAMICIN 130 MG in SODIUM CHLORIDE 0.9% 100 ML IVPB ONE; LACTATED RINGERS 1,000 ML IV SCH
[2018-07-18 13:51] VITALS: RESP 16
[2018-07-18] MEDS ORDERED: LIDOCAINE 1% 20 ML VIAL (10MG/ML) FOR IV START INTRADERMA ONE (14:04)
--- NOTE | 2018-07-18 14:05 | XR ---
EXAMINATION TYPE: XR KUB DATE OF EXAM: 07/18/2018 COMPARISON: 07/09/2018 HISTORY: Renal stone TECHNIQUE: One view abdominal series FINDINGS: The osseous structures are intact. The bowel gas pattern is nonspecific. Surgical clips in the right upper quadrant. There is a 5 mm calcification overlying the upper pole the left kidney stable in appearance. Addition al punctate lower pole 2 mm left renal calculus suspected. Calcification overlying the left sacrum me asures 4 mm. Could potentially be in the course of the left ureter. And appears in a similar appearan ce to the previous CT scan. Retained fecal debris and bowel content on the right limits assessment of the right kidney. IMPRESSION: 1. Suspect mid to distal left ureteral calculus at the level of the S2 level. 2. Findings suggest 5 mm upper pole left renal calculus.
[2018-07-18] MEDS ORDERED: ONDANSETRON 4 MG/2 ML VIAL ONE (14:20)
[2018-07-18] MEDS ORDERED: ONDANSETRON 4 MG/2 ML VIAL IVP ONE (14:23)
[2018-07-18] MEDS ORDERED: LIDOCAINE 1% INJ 10MG/ML (20 ML MDV) ONE (14:52)
[2018-07-18] MEDS ORDERED: fentaNYL (PF) 50 MCG/ML 2 ML AMP ONE (14:52)
[2018-07-18] MEDS ORDERED: KETOROLAC 30 MG/ML 1 ML VIAL ONE (14:52)
[2018-07-18] MEDS ORDERED: PROPOFOL 10 MG/ML 20 ML VIAL IV ONE (14:52)
[2018-07-18] MEDS ORDERED: MIDAZOLAM 2 MG/2 ML VIAL ONE (14:52)
[2018-07-18] MEDS ORDERED: IOHEXOL 350 MG/ML 50ML BOTTLE MISCELLANE ONE (15:11)
--- NOTE | 2018-07-18 15:38 | P.OP ---
Date of Procedure: 07/18/18 Preoperative Diagnosis: Left ureteral calculus Postoperative Diagnosis: Left ureteral calculus Procedure(s) Performed: Cystoscopy, left retrograde pyelogram, left ureteroscopy with laser lithotripsy , 6 x 24 double-J catheter Anesthesia: YURI Surgeon: Gaudencio Aaron Estimated Blood Loss (ml): 0 Pathology: other (Stone) Condition: stable Disposition: PACU Indications for Procedure: The patient is 43. She has been trying to pass a left ureteral stone for the last couple weeks. She continues with colic. She comes for ureteroscopy and laser lithotripsy Description of Procedure: The patient is brought to the operating suite. She is given a general endotracheal anesthesia. She's placed lithotomy position with a sterile prep and drape. I do not easily see the stone under fluoroscopy. Cystoscopy Foroblique lens and 22-[place] sheath identifies a normal bladder normal ureteral orifices. With an 8 cone-tip catheter a left retrograde pyelograms performed and identified a 5 mm stone just below the left iliac vessels. I passed the semirigid scope up to the stone. There is a fair amount of edema around the stone. With the 300 laser probe the stone was broken into tiny pieces and flushed out of the ureter. The largest piece was sent to pathology. I reinspected the ureter and there is too much edema to not place a stent. This an 035 wires passed into the ureter through the ureteroscope up. I move the ureteroscope. I place a 6 x 24 double-J catheter that coils in the renal pelvis and the bladder. The bladder strain the cystoscope was removed the patient is awakened and returned recovery room good condition. She tolerated procedure well be discharged HOME upon recovery. She'll follow in the office in one week for stent removal
[2018-07-18 15:45] VITALS: TEMP 97
--- NOTE | 2018-07-18 15:59 | FL ---
EXAMINATION TYPE: FL urography retrograde DATE OF EXAM: 07/18/2018 COMPARISON: NONE HISTORY: Fluoroscopy time TECHNIQUE: Fluoroscopy. FINDINGS: Fluoroscopic guidance was provided for 15 seconds. IMPRESSION: As Above.
[2018-07-18 17:23] VITALS: BP 130/82; PULSE 65
== END 2018-07-18 17:24 | disposition home or self-care (01) ==
LOC: OR 13:20
PROVIDERS: ATTEND Urology
DX: N20.1 Calculus of ureter (principal); Z87.442 Personal history of urinary calculi; Z79.899 Other long term (current) drug therapy
CPT/HCPCS: 81025; 82365; 74420; 74018; 52356; C2625; C1758 ×3; C1769; C1894; J2250; J2405; J2001; J3010; J1885; J2704; Q9967

== ENCOUNTER → 2018-07-19 | Outpatient (CLI) | payer BC ==
--- NOTE | 2018-07-21 10:16 | MM ---
Reason for exam: screening (asymptomatic). Last mammogram was performed 1 year and 1 month ago. History: Family history of breast cancer in aunt at age 50. Taking hormonal contraceptives for 16 years beginning at age 18. Physical Findings: A clinical breast exam by your physician is recommended on an annual basis and results should be correlated with mammographic findings. MG 3D Screening Mammo W/Cad Bilateral CC and MLO view(s) were taken. Prior study comparison: June 30, 2017, bilateral MG screening mammo w CAD. June 29, 2016, bilateral MG screening mammo w CAD. The breast tissue is heterogeneously dense. This may lower the sensitivity of mammography. There is chronic nodularity in the right breast. No significant changes when compared with prior studies. ASSESSMENT: Negative, BI-RAD 1 RECOMMENDATION: Routine screening mammogram of both breasts in 1 year.
== END | disposition home or self-care (01) ==
LOC: RADMAMWWP 15:26
PROVIDERS: ATTEND Family Medicine
DX: Z12.31 Encounter for screening mammogram for malignant neoplasm of breast (principal)
CPT/HCPCS: 77063; 77067

== ENCOUNTER → 2019-07-24 | Outpatient (CLI) | payer BC ==
--- NOTE | 2019-07-25 12:13 | MM ---
Reason for exam: screening (asymptomatic). Last mammogram was performed 1 year ago. History: Family history of breast cancer in aunt at age 50. Taking hormonal contraceptives for 16 years beginning at age 18. Physical Findings: A clinical breast exam by your physician is recommended on an annual basis and results should be correlated with mammographic findings. MG Screening Mammo w CAD Bilateral CC and MLO view(s) were taken. Prior study comparison: July 19, 2018, bilateral MG 3d screening mammo w/cad. June 30, 2017, bilateral MG screening mammo w CAD. The breast tissue is heterogeneously dense. This may lower the sensitivity of mammography. There is chronic nodularity in the right breast. No significant changes when compared with prior studies. ASSESSMENT: Benign, BI-RAD 2 RECOMMENDATION: Routine screening mammogram of both breasts in 1 year.
== END | disposition home or self-care (01) ==
LOC: RADMAMWWP 15:25
PROVIDERS: ATTEND Family Medicine
DX: Z12.31 Encounter for screening mammogram for malignant neoplasm of breast (principal)
CPT/HCPCS: 77067

== ENCOUNTER → 2020-09-26 | Outpatient (CLI) | payer BC ==
--- NOTE | 2020-09-29 13:26 | MM ---
Reason for exam: screening (asymptomatic). Last mammogram was performed 1 year and 2 months ago. History: Family history of breast cancer in aunt at age 50. Taking hormonal contraceptives for 16 years beginning at age 18. Physical Findings: A clinical breast exam by your physician is recommended on an annual basis and results should be correlated with mammographic findings. MG 3D Screening Mammo W/Cad Bilateral CC and MLO view(s) were taken. Prior study comparison: July 24, 2019, bilateral MG screening mammo w CAD. July 19, 2018, bilateral MG 3d screening mammo w/cad. The breast tissue is heterogeneously dense. This may lower the sensitivity of mammography. No significant changes when compared with prior studies. ASSESSMENT: Benign, BI-RAD 2 RECOMMENDATION: Routine screening mammogram of both breasts in 1 year.
== END | disposition home or self-care (01) ==
LOC: RADMAMWWP 14:53
PROVIDERS: ATTEND Obstetrics & Gynecology
DX: Z12.31 Encounter for screening mammogram for malignant neoplasm of breast (principal)
CPT/HCPCS: 77063; 77067

== ENCOUNTER → 2021-09-14 | Outpatient (CLI) | payer BC ==
[2021-09-15 00:04] LABS: Basophils # (A) 0.06 X 10*3/uL (0.00-0.10); Basophils % (A) 1.4 %; Eosinophils # (A) 0.07 X 10*3/uL (0.04-0.35); Eosinophils % (A) 1.6 %; HCT 39.9 % (37.2-46.3); HGB 12.5 g/dL (12.0-15.0); Lymphocytes # (A) 1.49 X 10*3/uL (0.90-5.00); Lymphocytes % (A) 33.7 %; MCH 29.3 pg (27.0-32.0); MCHC 31.3 g/dL (32.0-37.0); MCV 93.4 fL (80.0-97.0); Mean Platelet Volume 8.6 fL (9.5-12.2); Monocytes # (A) 0.49 X 10*3/uL (0.20-1.00); Monocytes % (A) 11.1 %; Neutrophils # (A) 2.28 X 10*3/uL (1.80-7.70); Neutrophils % (A) 51.5 %; Platelet Count 376 X 10*3/uL (140-440); RBC 4.27 X 10*6/uL (4.10-5.20); RDW 12.9 % (11.5-14.5); WBC 4.42 X 10*3/uL (4.50-10.00)
[2021-09-15 05:32] LABS: Progesterone <0.05 ng/mL; Thyroid Peroxidase Antibodies <9.0 U/mL (0.0-33.0)
[2021-09-15 08:31] LABS: Estradiol <5.0 pg/mL
== END | disposition home or self-care (01) ==
LOC: LABWHC1 15:24
DX: E55.9 Vitamin D deficiency, unspecified (principal); N95.9 Unspecified menopausal and perimenopausal disorder
CPT/HCPCS: 36415; 82306; 82670; 83001; 84144; 84432; 84443; 85025; 86376; 86800

== ENCOUNTER → 2021-11-17 | Outpatient (CLI) | payer BC ==
--- NOTE | 2021-11-19 10:19 | MM ---
Reason for exam: screening (asymptomatic). Last mammogram was performed 1 year and 2 months ago. History: Family history of breast cancer in aunt at age 50. Taking hormonal contraceptives for 16 years beginning at age 18. Physical Findings: A clinical breast exam by your physician is recommended on an annual basis and results should be correlated with mammographic findings. MG 3D Screening Mammo W/Cad Bilateral CC and MLO view(s) were taken. Prior study comparison: September 26, 2020, bilateral MG 3d screening mammo w/cad. July 24, 2019, bilateral MG screening mammo w CAD. The breast tissue is heterogeneously dense. This may lower the sensitivity of mammography. Benign appearing bilateral calcifications. There is chronic nodularity in the right breast. No significant changes when compared with prior studies. ASSESSMENT: Benign, BI-RAD 2 RECOMMENDATION: Routine screening mammogram of both breasts in 1 year.
== END | disposition home or self-care (01) ==
LOC: RADMAMWWP 15:00
PROVIDERS: ATTEND Obstetrics & Gynecology
DX: Z12.31 Encounter for screening mammogram for malignant neoplasm of breast (principal); Z80.3 Family history of malignant neoplasm of breast
CPT/HCPCS: 77063; 77067

== ENCOUNTER → 2022-11-18 | Outpatient (CLI) | payer BC ==
--- NOTE | 2022-11-20 16:35 | MM ---
Reason for Exam: Screening (asymptomatic). Last screening mammogram was performed 12 month(s) ago. Patient History: Menarche at age 12. First Full-Term at age 27. Currently using Hormonal Contraceptives, beginning at age 18 for 16 years. Maternal aunt had breast cancer, age 50. Risk Values: Shae 5 year model risk: 1.0%. NCI Lifetime model risk: 10.2%. Prior Study Comparison: 07/24/2019 Bilateral Screening Mammogram, [facility]. 09/26/2020 Bilateral Screening Mammogram, [facility]. 11/17/2021 Bilateral Screening Mammogram, [facility]. Tissue Density: The breast tissue is heterogeneously dense. This may lower the sensitivity of mammography. Findings: Analyzed By CAD. Unchanged low-density chronic areas of nodularity on both sides as well as a low axillary tail lymph node on the right. There is no suspicious group of microcalcifications or new suspicious mass in either breast. Overall Assessment: Benign, BI-RAD 2 Management: Screening Mammogram of both breasts in 1 year. 1. Patient should continue monthly self breast exams. 2. A clinical breast exam by your physician is recommended on an annual basis. 3. This exam should not preclude additional follow-up of suspicious palpable abnormalities. Electronically signed and approved by: Hansel Patricia M.D. Radiologist
== END | disposition home or self-care (01) ==
LOC: RADMAMWWP 16:07
PROVIDERS: ATTEND Obstetrics & Gynecology
DX: Z12.31 Encounter for screening mammogram for malignant neoplasm of breast (principal); Z80.3 Family history of malignant neoplasm of breast
CPT/HCPCS: 77063; 77067

== ENCOUNTER → 2023-12-01 | Outpatient (CLI) | payer BC ==
--- NOTE | 2023-12-02 19:35 | MM ---
Reason for Exam: Screening (asymptomatic). Last screening mammogram was performed 12 month(s) ago. Patient History: Menarche at age 12. First Full-Term at age 27. Currently using Hormonal Contraceptives, beginning at age 18 for 16 years. Maternal aunt had breast cancer, age 50. Risk Values: Shae 5 year model risk: 1.0%. NCI Lifetime model risk: 10.0%. Prior Study Comparison: 09/26/2020 Bilateral Screening Mammogram, [facility]. 11/17/2021 Bilateral Screening Mammogram, [facility]. 11/18/2022 Bilateral MG 3D screening mammo w/cad, [facility]. Tissue Density: The breast tissue is heterogeneously dense. This may lower the sensitivity of mammography. Findings: Analyzed By CAD. Increasing nodularity 6:00 posterior left breast for which further evaluation is recommended. Otherwise, no significant change. Overall Assessment: Incomplete: need additional imaging evaluation, BI-RAD 0 Management: Special View Mammogram of the left breast. Diagnostic Breast Ultrasound of the left breast. . [facility] will attempt to contact patient to return for supplemental views and ultrasound if indicated. Electronically signed and approved by: Hansel Patricia M.D. Radiologist
== END | disposition home or self-care (01) ==
LOC: RADMAMWWP 14:53
PROVIDERS: ATTEND Obstetrics & Gynecology
DX: Z12.31 Encounter for screening mammogram for malignant neoplasm of breast (principal); Z80.3 Family history of malignant neoplasm of breast
CPT/HCPCS: 77067

== ENCOUNTER → 2023-12-12 | Outpatient (CLI) | payer BC ==
--- NOTE | 2023-12-12 14:41 | MM ---
Reason for Exam: Additional evaluation requested from abnormal screening. Last screening mammogram was performed less than 1 month ago. Patient History: Menarche at age 12. First Full-Term at age 27. Patient has history of breast feeding. Currently using Hormonal Contraceptives, beginning at age 18 for 16 years. Maternal aunt had breast cancer, age 50. Risk Values: Shae 5 year model risk: 1.0%. NCI Lifetime model risk: 10.0%. Prior Study Comparison: 11/17/2021 Bilateral Screening Mammogram, [facility]. 11/18/2022 Bilateral MG 3D screening mammo w/cad, [facility]. 12/01/2023 Bilateral MG screening mammo w CAD, [facility]. Tissue Density: Left: There are scattered fibroglandular densities. Findings: Analyzed By CAD. On MLO view a 5 mm lesion is felt to be a the posterior aspect of the [id number]. This lesion is not well appreciated on the LM and CC views with compression. Given findings on prior screening mammogram and ultrasound will be performed to ensure no lesions are in inferior breast at approximately 6:00. Overall Assessment: Incomplete: need additional imaging evaluation, BI-RAD 0 Management: Diagnostic Breast Ultrasound of the left breast. Ultrasound imaging inferior breast with focused attention on the 6:00 area. Results were given to the patient verbally at the time of exam. Patient should continue monthly self-breast exams. A clinical breast exam by your physician is recommended on an annual basis. This exam should not preclude additional follow-up of suspicious palpable abnormalities. Note on Shae scores and lifetime risk: 1. A Shae score greater than 3% is considered moderate risk. If this is the case, consider specialist referral to assess eligibility for a risk reducing agent. 2. If overall lifetime risk for the development of breast cancer is 20% or higher, the patient may qualify for future screening with alternating mammogram and breast MRI. Electronically signed and approved by: Rodo Smith DO
--- NOTE | 2023-12-12 15:02 | USB ---
Reason for Exam: Additional evaluation requested from abnormal screening. Patient History: Menarche at age 12. First Full-Term at age 27. Patient has history of breast feeding. Currently using Hormonal Contraceptives, beginning at age 18 for 16 years. Maternal aunt had breast cancer, age 50. Risk Values: Shae 5 year model risk: 1.0%. NCI Lifetime model risk: 10.0%. Technique: Method: Targeted. Prior Study Comparison: 11/17/2021 Bilateral Screening Mammogram, [facility]. 11/18/2022 Bilateral MG 3D screening mammo w/cad, [facility]. 12/01/2023 Bilateral MG screening mammo w CAD, [facility]. Findings: The lower section of the breast of the left breast and the retroareolar of the left breast were scanned. Technique utilized:US breast workup limited LT Image; Ultrasound imaging of: Area of concern, retroareolar region and axilla. Multiple anechoic cysts are identified which are similar in size and in the expected location of mammography findings. No suspicious mass. No evidence for organizing fluid collection or mass. Overall Assessment: Benign, BI-RAD 2 Management: Screening Mammogram of both breasts in 1 year. A clinical breast exam by your physician is recommended on an annual basis and results should be correlated with mammographic findings. This exam should not preclude additional follow-up of suspicious palpable abnormalities. Results were given to the patient verbally at the time of exam. Electronically signed and approved by: Rodo Smith DO
== END | disposition home or self-care (01) ==
LOC: RADMAMWWP 14:08
PROVIDERS: ATTEND Obstetrics & Gynecology
DX: R92.322 Mammographic fibroglandular density, left breast (principal); Z80.3 Family history of malignant neoplasm of breast
CPT/HCPCS: 77061; 77065

== ENCOUNTER → 2024-12-03 | Outpatient (CLI) | payer BC ==
--- NOTE | 2024-12-04 08:38 | MM ---
Reason for Exam: Screening (asymptomatic). Last screening mammogram was performed 12 month(s) ago. Patient History: Menarche at age 12. First Full-Term at age 27. Patient has history of breast feeding. Currently using Hormonal Contraceptives, beginning at age 18 for 16 years. Maternal aunt had breast cancer, age 50. Risk Values: Shae 5 year model risk: 1.1%. NCI Lifetime model risk: 9.9%. Prior Study Comparison: 11/18/2022 Bilateral MG 3D screening mammo w/cad, [facility]. 12/01/2023 Bilateral MG screening mammo w CAD, [facility]. 12/12/2023 Left MG 3D work up w/cad , [facility]. Tissue Density: The breasts are heterogeneously dense, which may obscure small masses. Findings: Analyzed By CAD. Right breast: There is no suspicious group of microcalcifications or new suspicious mass. Left breast: There is no suspicious group of microcalcifications or new suspicious mass. Overall Assessment: Negative, BI-RAD 1 Management: Screening Mammogram of both breasts in [address] [facility] will attempt to contact patient to return for supplemental views and ultrasound if indicated. Patient should continue monthly self-breast exams. A clinical breast exam by your physician is recommended on an annual basis. This exam should not preclude additional follow-up of suspicious palpable abnormalities. Note on Shae scores and lifetime risk: 1. A Shae score greater than 3% is considered moderate risk. If this is the case, consider specialist referral to assess eligibility for a risk reducing agent. 2. If overall lifetime risk for the development of breast cancer is 20% or higher, the patient may qualify for future screening with alternating mammogram and breast MRI. [facility], , 12/04/2024 8:35 AM. Electronically signed and approved by: Rodo Smith DO
== END | disposition home or self-care (01) ==
LOC: RADMAMWWP 15:51
PROVIDERS: ATTEND Obstetrics & Gynecology
DX: Z12.31 Encounter for screening mammogram for malignant neoplasm of breast (principal); R92.333 Mammographic heterogeneous density, bilateral breasts; Z80.3 Family history of malignant neoplasm of breast
CPT/HCPCS: 77063; 77067

== ENCOUNTER → 2025-01-03 | Outpatient (CLI) | payer BC ==
--- NOTE | 2025-01-03 16:59 | XR ---
EXAMINATION TYPE: XR foot complete LT DATE OF EXAM: 01/03/2025 4:13 PM COMPARISON: None. CLINICAL INDICATION: Female, 49 years old with history of M77.42 M79.672 LFT FOOT METATARSALGIA, [place] N LFT FOOT, pain TECHNIQUE: 3 view(s) obtained. FINDINGS: No acute fracture or dislocation evident. Joint spaces are preserved. Soft tissues appear normal. Ant erior calcaneal heel spur is present. Follow up exams can be performed 7-10 days from acute trauma for continued pain IMPRESSION: 1. No acute osseous abnormality left foot [facility], , 01/03/2025 4:56 PM
== END | disposition home or self-care (01) ==
LOC: RADXRMAIN 15:57
PROVIDERS: ATTEND Student in an Organized Health Care Education/Training Program
DX: M77.42 Metatarsalgia, left foot (principal)